=== PATIENT | female | born 1950 | race Caucasian/White ===

== ENCOUNTER → 2018-06-13 | Outpatient (CLI) | payer MEDICARE, OTHER ==
[~2018-06-13] MED LIST: ACE325 PO; CALC500T42 PO; CHOL100060 PO; CINN500C12 PO; LEVO88TA42 PO; MULTIVITAMIN PO; PHYT100T4 PO; PRIMROSE OIL PO; SALM1CAP3 PO; TRI100 PO
--- NOTE | 2018-06-13 14:37 | RADIOLOGY IMAGING REPORT ---
FACILITY: [facility] PATIENT NAME: MAXIMO TODD : [id number] MR: [id number] V: [id number] EXAM DATE: [id number] ORDERING PHYSICIAN: ALBINA LOVELACE TECHNOLOGIST: Maame Ma PROCEDURE:BILATERAL DIGITAL SCREENING MAMMOGRAM WITH CAD ASSISTED INTERPRETATION & 3D TOMOSYNTHESIS COMPARISON:Prior mammograms 04/25/16, 04/11/15, 03/26/14, 03/17/13, 03/14/12, 02/28/12. INDICATIONS:SCREENING FINDINGS: The breasts are heterogeneously dense which can obscure small masses. The parenchymal pattern has remained stable allowing for difference in mammographic technique & patient positioning. DIAGNOSTIC CATEGORY 1--NEGATIVE. RECOMMENDATIONS: ROUTINE MAMMOGRAM AND CLINICAL EVALUATION. IMPRESSION: BIRADS 1: Negative. No significant abnormality is seen. Dictated by: Parisa Batres M.D. on 06/13/2018 at 11:48 Transcribed by: ROGERIO on 06/13/2018 at 13:13 Approved by: Parisa Batres M.D. on 06/13/2018 at 14:36 [facility]
== END ==
LOC: MAMO 01:35
PROVIDERS: ATTEND Family Medicine
DX: Z12.31 Encounter for screening mammogram for malignant neoplasm of breast (principal)
CPT/HCPCS: 77063; 77067

== ENCOUNTER 2018-07-25 03:28 | Emergency (ER) | payer MEDICARE, OTHER ==
--- NOTE | 2018-07-25 03:31 | ER Report ---
History and Physical Time Seen By MD: 03:30 HPI/ROS CHIEF COMPLAINT: Left-sided chest pain, left-sided headache HISTORY OF PRESENT ILLNESS: Patient is a 68-year-old female here with complaints of the above. Patient reports that symptoms started approximately 1800 hrs. Pain is partially reproducible on palpation. Patient does have a history significant for stent placement after an abnormal nuclear stress test in 2010. Patient denies recent illness, fevers, chills, abdominal pain, nausea, vomiting. Patient did take aspirin full-strength before arrival. Patient is hemodynamically stable at time of evaluation. REVIEW OF SYSTEMS: Constitutional: No fever, no chills. Eyes: No discharge. ENT: No sore throat. Cardiovascular: + left lower chest pain without radiation, no palpitations. Respiratory: No cough, no shortness of breath. Gastrointestinal: No abdominal pain, no vomiting. Genitourinary: No hematuria. Musculoskeletal: No back pain. Skin: No rashes. Neurological: No headache. Allergies: Uncoded Allergies: Hayfever (Allergy, Mild, UNKNOWN, 08/08/11) Home Meds Reported Medications [Multivitamin] No Conflict Check, PO DAILY, 0 Refills 04/30/10 Calcium (Calcium) 500 Mg Tablet, 500 MG PO BID, 0 Refills 04/30/10 Cinnamon Bark (Cinnamon) 500 Mg Capsule, 200 MG PO DAILY, 0 Refills 04/30/10 Freeburn-3 Fatty Acids ([place] Oil-1000) 1 Cap Capsule, 1 CAP PO BID, 0 Refills 04/30/10 Levothyroxine Sodium (Levothyroxine Sodium) 88 Mcg Tablet, 88 MCG PO DAILY, 0 Refills 04/30/10 Hx Smoking: No Hx Substance Use Disorder: No Hx Alcohol Use: No Constitutional Vital Sign - Last 24 Hours 07/25/18 03:32 Pulse 75 Resp 14 B/P (MAP) 155/87 Pulse Ox 94 O2 Delivery Room Air Physical Exam General Appearance: The patient is alert, has no immediate need for airway protection and no signs of toxicity. NAD Eyes: Pupils equal and round no pallor or injection. ENT, Mouth: Mucous membranes are moist. Respiratory: There are no retractions, lungs are clear to auscultation. Cardiovascular: Regular rate and rhythm. Gastrointestinal: Abdomen is soft and non tender, no masses, bowel sounds normal. Neurological: No focal neuro deficits Skin: Warm and dry, no rashes. Musculoskeletal: Neck is supple non tender. Extremities are nontender, nonswollen and have full range of motion. DIFFERENTIAL DIAGNOSIS: After history and physical exam differential diagnosis was considered for chest pain including but not limited to myocardial ischemia, pericarditis pulmonary embolus, chest wall pain, pleural inflammation and pulmonary infectious causes. Medical Decision Making Data Points Result Diagram: 07/25/18 0343 07/25/18 0343 Laboratory Hematology Test 07/25/18 03:43 Red Blood Count 4.97 M/uL (4.17-5.56) Mean Corpuscular Volume 91.3 fL (80.0-96.0) Mean Corpuscular Hemoglobin 31.3 pg (26.0-33.0) Mean Corpuscular Hemoglobin Concent 34.3 g/dL (32.0-36.0) Red Cell Distribution Width 12.9 % (11.5-14.5) Mean Platelet Volume 8.2 fL (7.2-11.1) Neutrophils (%) (Auto) 57.7 % (39.4-72.5) Lymphocytes (%) (Auto) 30.4 % (17.6-49.6) Monocytes (%) (Auto) 7.5 % (4.1-12.4) Eosinophils (%) (Auto) 3.5 % (0.4-6.7) Basophils (%) (Auto) 0.9 % (0.3-1.4) Nucleated RBC Relative Count (auto) 0.0 /100WBC Neutrophils # (Auto) 4.7 K/uL (2.0-7.4) Lymphocytes # (Auto) 2.5 K/uL (1.3-3.6) Monocytes # (Auto) 0.6 K/uL (0.3-1.0) Eosinophils # (Auto) 0.3 K/uL (0.0-0.5) Basophils # (Auto) 0.1 K/uL (0.0-0.1) Nucleated RBC Absolute Count (auto) 0.00 K/uL D-Dimer Quantitative (PE/DVT) < 0.27 ug/ml (0-0.50) Sodium Level 138 mmol/L (137-145) Potassium Level 4.0 mmol/L (3.5-5.0) Chloride Level 107 mmol/L (98-107) Carbon Dioxide Level 23 mmol/L (22-31) Blood Urea Nitrogen 23 mg/dl (7-18) Creatinine 1.00 mg/dl (0.52-1.04) Glomerular Filtration Rate Calc 55.5 Random Glucose 115 mg/dl (75-110) Calcium Level 8.9 mg/dl (8.4-10.2) Total Bilirubin 1.0 mg/dl (0.2-1.3) Aspartate Amino Transf (AST/SGOT) 31 U/L (0-35) Alanine Aminotransferase (ALT/SGPT) 44 U/L (0-56) Alkaline Phosphatase 110 U/L (0-126) Troponin I < 0.012 ng/ml B-Type Natriuretic Peptide 30 pg/ml (0-100) Total Protein 6.9 g/dl (6.3-8.2) Albumin 4.3 g/dl (3.5-5.0) Chemistry Test 07/25/18 03:43 White Blood Count 8.1 k/uL (4.5-11.0) Red Blood Count 4.97 M/uL (4.17-5.56) Hemoglobin 15.6 g/dL (12.0-16.0) Hematocrit 45.3 % (34.0-47.0) Mean Corpuscular Volume 91.3 fL (80.0-96.0) Mean Corpuscular Hemoglobin 31.3 pg (26.0-33.0) Mean Corpuscular Hemoglobin Concent 34.3 g/dL (32.0-36.0) Red Cell Distribution Width 12.9 % (11.5-14.5) Platelet Count 239 K/uL (150-450) Mean Platelet Volume 8.2 fL (7.2-11.1) Neutrophils (%) (Auto) 57.7 % (39.4-72.5) Lymphocytes (%) (Auto) 30.4 % (17.6-49.6) Monocytes (%) (Auto) 7.5 % (4.1-12.4) Eosinophils (%) (Auto) 3.5 % (0.4-6.7) Basophils (%) (Auto) 0.9 % (0.3-1.4) Nucleated RBC Relative Count (auto) 0.0 /100WBC Neutrophils # (Auto) 4.7 K/uL (2.0-7.4) Lymphocytes # (Auto) 2.5 K/uL (1.3-3.6) Monocytes # (Auto) 0.6 K/uL (0.3-1.0) Eosinophils # (Auto) 0.3 K/uL (0.0-0.5) Basophils # (Auto) 0.1 K/uL (0.0-0.1) Nucleated RBC Absolute Count (auto) 0.00 K/uL D-Dimer Quantitative (PE/DVT) < 0.27 ug/ml (0-0.50) Glomerular Filtration Rate Calc 55.5 Calcium Level 8.9 mg/dl (8.4-10.2) Total Bilirubin 1.0 mg/dl (0.2-1.3) Aspartate Amino Transf (AST/SGOT) 31 U/L (0-35) Alanine Aminotransferase (ALT/SGPT) 44 U/L (0-56) Alkaline Phosphatase 110 U/L (0-126) Troponin I < 0.012 ng/ml B-Type Natriuretic Peptide 30 pg/ml (0-100) Total Protein 6.9 g/dl (6.3-8.2) Albumin 4.3 g/dl (3.5-5.0) Coagulation Test 07/25/18 03:43 D-Dimer Quantitative (PE/DVT) < 0.27 ug/ml EKG/Imaging EKG Interpretation PATIENT NAME: MAXIMO WOLFE : [id number] MR: [id number] V: [id number] EXAM DATE: ORDERING PHYSICIAN: DEBBI SEALS TECHNOLOGIST: DMW Test Reason : CHEST PAIN Blood Pressure : / mmHG Vent. Rate : 062 BPM Atrial Rate : 062 BPM P-R Int : 184 ms QRS Dur : 084 ms QT Int : 444 ms P-R-T Axes : 071 -28 056 degrees QTc Int : 450 ms Normal sinus rhythm Normal ECG No previous ECGs available Referred By: Confirmed By: Imaging PATIENT NAME: Maximo Wolfe : 1950 MR: [id number] V: [id number] EXAM DATE: ORDERING PHYSICIAN: DEBBI SEALS TECHNOLOGIST: Location: [facility] Patient: Maximo Wolfe : 1950 Visit/Account:[id number] Date of Sevice: 07/25/2018 CHEST SINGLE AP 07/25/2018 03:43 hours. HISTORY: Chest pain. History of cardiac stent. COMPARISON: 02/01/2012 and 12/13/2009. TECHNIQUE: Portable AP view of the chest. FINDINGS: Tubes/lines/hardware: There are external chest leads. Pulmonary/pleura: Lungs are clear. There is no pneumothorax or pleural effusion. Cardiomediastinal: Cardiac and mediastinal silhouettes are within normal limits. Bones/soft tissues: No acute osseous abnormality. The visible abdomen is normal. IMPRESSION: 1. No acute cardiopulmonary process. Report Dictated By: Gretchen Hooker at 07/25/2018 4:11 AM ED Course/Re-evaluation ED Course Patient is a 68-year-old female here with complaints of left-sided anterior chest wall pain, headache. EKG showed no ischemic changes or arrhythmias. Chest x-ray was clear with no signs of bacterial pneumonia, pneumothorax or fluid. Single troponin was negative and the setting of onset of pain at 1800. D-dimer was negative as well. There is no leukocytosis, labs are otherwise unremarkable. Patient was given normal saline bolus, Toradol for symptom management. I discussed the findings with the patient and the patient's and they voiced understanding. Return precautions provided, close PCP follow-up recommended. Decision to Disposition Date: Jul 25, 2018 Decision to Disposition Time: 04:29 Depart Departure Latest Vital Signs Vital Signs Date Time Temp Pulse Resp B/P (MAP) Pulse Ox O2 Delivery O2 Flow Rate FiO2 07/25/18 03:32 75 14 155/87 94 Room Air Impression: Primary Impression: Chest wall pain Condition: Improved Disposition: HOME OR SELF-CARE Referrals: ALBINA LOVELACE DO (PCP) Patient Instructions: Chest Wall Pain (GEN) Additional Instructions: Please drink plenty of water. You may take Tylenol, ibuprofen or naproxen as needed for primary pain control. Please follow-up in the next 24-48 hours with your family doctor. Please return if you develop worsening chest pain, shortness breath, fevers, chills, nausea, vomiting. DEBBI SEALS DO Jul 25, 2018 03:30
[2018-07-25] MEDS ORDERED: NS(*) 0.9% 1000 ML BAG 1,000 ML IV ONE (03:43)
[2018-07-25] MEDS ORDERED: KETOROLAC 30 MG/ML VIAL IVP ONE (03:45)
[2018-07-25 03:55] LABS: PLATELET COUNT, AUTOMATED 239 K/uL (150-450)
--- NOTE | 2018-07-25 04:16 | RADIOLOGY IMAGING REPORT ---
FACILITY: [facility] PATIENT NAME: Willow Wolfe : 1950 MR: [id number] V: [id number] EXAM DATE: ORDERING PHYSICIAN: DEBBI SEALS TECHNOLOGIST: Location: [facility] [place] Patient: Willow Wolfe : 1950 Visit/Account:[id number] Date of Sevice: 07/25/2018 CHEST SINGLE AP 07/25/2018 03:43 hours. HISTORY: Chest pain. History of cardiac stent. COMPARISON: 02/01/2012 and 12/13/2009. TECHNIQUE: Portable AP view of the chest. FINDINGS: Tubes/lines/hardware: There are external chest leads. Pulmonary/pleura: Lungs are clear. There is no pneumothorax or pleural effusion. Cardiomediastinal: Cardiac and mediastinal silhouettes are within normal limits. Bones/soft tissues: No acute osseous abnormality. The visible abdomen is normal. IMPRESSION: 1. No acute cardiopulmonary process. Report Dictated By: Gretchen Hooker at 07/25/2018 4:11 AM Report E-Signed By: Gretchen Hooker at 07/25/2018 4:12 AM WSN:[id number]
--- NOTE | 2018-07-25 04:23 | EKG ---
FACILITY: [facility] PATIENT NAME: MAXIMO TODD : [id number] MR: [id number] V: [id number] EXAM DATE: ORDERING PHYSICIAN: DEBBI SEALS TECHNOLOGIST: GENIE Test Reason : CHEST PAIN Blood Pressure : / mmHG Vent. Rate : 062 BPM Atrial Rate : 062 BPM P-R Int : 184 ms QRS Dur : 084 ms QT Int : 444 ms P-R-T Axes : 071 -28 056 degrees QTc Int : 450 ms Normal sinus rhythm Normal ECG No previous ECGs available Confirmed by Kirill Ceballos ([id number]) on 07/25/2018 7:39:33 AM Referred By: Confirmed By:Kirill Sanchez
[2018-07-25 04:30] VITALS: BP 147/86
[2018-07-25] MEDS ORDERED: ATOR40TA24 PO (05:13)
[2018-07-25] MEDS ORDERED: RANO500T PO (05:13)
[2018-07-25] MEDS ORDERED: FAMO-67 PO (05:13)
[2018-07-25] MEDS ORDERED: METO-253 PO (05:13)
[2018-07-25] MEDS ORDERED: ASPI-1471 PO (05:13)
[2018-07-25] MEDS ORDERED: ESTR42.59 VG (05:13)
[2018-07-25] MEDS ORDERED: GLUC-198 PO (05:13)
[2018-07-25] MEDS ORDERED: ISOS20TA64 PO (05:13)
[2018-07-25] MEDS ORDERED: MILK THISLE (05:13)
== END 2018-07-25 04:36 | disposition home or self-care (01) ==
LOC: ER 03:47
DX: R07.9 Chest pain, unspecified (principal); Z95.5 Presence of coronary angioplasty implant and graft
CPT/HCPCS: 71045; 83880; 84484; 85025; 85379; 93005; 96361; 96374; 99284; J1885; J7030; 82040; 82247; 82310; 82374; 82435; 82565; 82947; 84075; 84132; 84155; 84295; 84450; 84460; 84520